=== PATIENT | female | born 1985 | race Caucasian/White ===

== ENCOUNTER 2022-10-23 06:45 | Outpatient (CLI) | payer OTHER, SELFPAY | END 2022-10-23 06:46 | disposition home or self-care (01) | LOC: NFLDREF 15:23 | PROVIDERS: PCP Family Medicine; Referring Provider Family Medicine; Visit Provider Family Medicine | DX: R19.7 Diarrhea, unspecified (principal); K21.9 Gastro-esophageal reflux disease without esophagitis | CPT/HCPCS: 87045; 87046; 87077; 87177; 87209; 87338; 87427; 87493; 87505 ==